=== PATIENT | female | born 1940 | race Caucasian/White ===

== ENCOUNTER 2018-03-15 15:55 | Inpatient (IN) ==
[2018-03-15] MEDS ORDERED: CLINDAMYCIN INJ 600 MG in PREMIX 1 EACH IV STA (16:38)
[2018-03-15 16:46] LABS: Basophils % 0.2 % (0.0-0.8); Eosinophils % 0.2 % (0.00-10.9); Hematocrit 41.4 VOL% (35.7-47.0); Hemoglobin 14.1 GM/DL (12.0-16.0); Immature Granulocytes % 0.6 %; Immature Granulocytes Absolute 0.12 #; Lymphocytes # 1.5 10*3/uL (1.4-4.0); Lymphocytes % 7.8 % (21.3-54.2); Mean Corpuscular HGB Conc 34.1 GM/DL (32-36); Mean Corpuscular Hemoglobin 30 PG (27-34); Mean Corpuscular Volume 86.8 FL (87-102); Mean Platelet Volume 10.8 FL (9.6-12.0); Monocytes # 0.9 10*3/uL (0.11-0.8); Monocytes % 4.7 % (1.7-12.7); Neutrophils # 16.8 10*3/uL (1.4-7.4); Neutrophils % 86.5 % (38.7-73.9); Platelet Count 241 T/CUMM (130-400); Red Blood Count 4.77 MC/CUMM (3.8-5.5); Red Cell Distribution Width 13.5 % (9.3-17.3); White Blood Count 19.3 T/CUMM (4-12)
[2018-03-15] MEDS ORDERED: SODIUM CHLORIDE 0.9% 1,000 ML IV STA (17:08)
[2018-03-15 17:10] LABS: Albumin 3.5 G/DL (3.4-5.0); Bilirubin,Total 1.2 MG/DL (0.2-1.0); Calcium 8.3 MG/DL (8.5-10.1); Osmolality,Calculated 276.2 MOS/KG (273-304); Potassium 3.8 MMOL/L (3.5-5.1); Total Protein 7.1 G/DL (6.4-8.3)
[2018-03-15 17:32] LABS: Lactic Acid 1.5 MMOL/L (0.4-2.0)
[2018-03-15] MEDS ORDERED: ACETAMINOPHEN 325 MG TABLET PO PRN (17:56)
[2018-03-15] MEDS ORDERED: ONDANSETRON 4 MG/2 ML VIAL IV PRN (17:56)
[2018-03-15] MEDS ORDERED: diphenhydrAMINE 50 MG/1 ML VIAL IV PRN (17:56)
[2018-03-15] MEDS ORDERED: CEFTAROLINE 300 MG in SODIUM CHLORIDE 0.9% 100 ML IV SCH (19:30)
[2018-03-15] MEDS ORDERED: diphenhydrAMINE 2% CREAM 28 GM TUBE TOP PRN (20:55)
[2018-03-15] MEDS: SODIUM CHLORIDE 0.9% 1,000 ML IV SCH (20:58)
[2018-03-15] MEDS ORDERED: SIMVASTATIN 40 MG TABLET PO SCH (21:00)
[2018-03-15] MEDS: diphenhydrAMINE CAP 50 MG CAPSULE PO PRN (21:11)
[2018-03-16] MEDS: diphenhydrAMINE CAP 50 MG CAPSULE PO PRN ×2 (05:52→21:26)
[2018-03-16] MEDS ORDERED: methylPREDNISolone SOD SUC 40 MG/1 ML VIAL IV ONE (06:00)
[2018-03-16 06:11] LABS: Basophils % 0.1 % (0.0-0.8); Eosinophils # 0.2 10*3/uL (0.0-0.87); Eosinophils % 1.4 % (0.00-10.9); Hematocrit 34.3 VOL% (35.7-47.0); Immature Granulocytes % 0.4 %; Immature Granulocytes Absolute 0.04 #; Lymphocytes # 1.5 10*3/uL (1.4-4.0); Lymphocytes % 13.9 % (21.3-54.2); Mean Corpuscular HGB Conc 33.8 GM/DL (32-36); Mean Corpuscular Hemoglobin 30 PG (27-34); Mean Corpuscular Volume 88.6 FL (87-102); Mean Platelet Volume 11.5 FL (9.6-12.0); Monocytes # 0.6 10*3/uL (0.11-0.8); Monocytes % 5.4 % (1.7-12.7); Neutrophils # 8.4 10*3/uL (1.4-7.4); Neutrophils % 78.8 % (38.7-73.9); Red Blood Count 3.87 MC/CUMM (3.8-5.5); Red Cell Distribution Width 13.6 % (9.3-17.3)
[2018-03-16 06:12] LABS: Calcium 7.8 MG/DL (8.5-10.1); Osmolality,Calculated 279.7 MOS/KG (273-304); Potassium 3.4 MMOL/L (3.5-5.1)
[2018-03-16 06:13] LABS: Hemoglobin 11.6 GM/DL (12.0-16.0); White Blood Count 10.6 T/CUMM (4-12)
[2018-03-16 06:14] LABS: Platelet Count 189 T/CUMM (130-400)
[2018-03-16] MEDS: SODIUM CHLORIDE 0.9% 1,000 ML IV SCH (06:41)
[2018-03-16] MEDS ORDERED: CLINDAMYCIN INJ 600 MG in PREMIX 1 EACH IV SCH (07:00)
[2018-03-16] MEDS ORDERED: POTASSIUM CHLORIDE RIDER 10 MEQ in PREMIX 1 EACH IV PRN (07:23)
[2018-03-16] MEDS: POTASSIUM CHLORIDE 8 MEQ CAPSULE PO SCH (08:04)
[2018-03-16] MEDS: CALCIUM (CARBONATE)/VITAMIN D 600 MG-400 UNIT TABLET PO SCH (08:04)
[2018-03-16] MEDS: POTASSIUM CHLORIDE 20 MEQ TABLET PO PRN (08:04)
[2018-03-16] MEDS: ASPIRIN EC 81 MG TABLET PO SCH (08:05)
[2018-03-16] MEDS: CETIRIZINE 10 MG TABLET PO SCH (08:36)
[2018-03-16] MEDS: FAMOTIDINE 20 MG TABLET PO SCH ×2 (08:36→21:26)
[2018-03-16] MEDS: FLUCONAZOLE INJ 200 MG in PREMIX 1 EACH IV SCH (08:36)
[2018-03-16] MEDS: CLOTRIMAZOLE/BETAMETHASONE CREAM 15 GM TUBE TOP SCH ×2 (08:36→21:26)
[2018-03-16] MEDS ORDERED: MELOXICAM 7.5 MG TABLET PO SCH (09:00)
[2018-03-16] MEDS ORDERED: PANTOPRAZOLE 40 MG TABLET PO SCH (09:00)
[2018-03-16] MEDS ORDERED: PNEUMOCOCCAL VACCINE (13 VALENT) 0.5 ML SYRINGE IM ONE (09:00)
[2018-03-16] MEDS ORDERED: LISINOPRIL/HCTZ 10-12.5 MG TABLET PO SCH (09:00)
[2018-03-16] MEDS ORDERED: ESTRADIOL 1 MG TABLET PO SCH (09:00)
[2018-03-17] MEDS: diphenhydrAMINE CAP 50 MG CAPSULE PO PRN (04:07)
[2018-03-17 05:19] LABS: Basophils % 0.1 % (0.0-0.8); Eosinophils % 0.2 % (0.00-10.9); Hematocrit 31.8 VOL% (35.7-47.0); Hemoglobin 10.4 GM/DL (12.0-16.0); Immature Granulocytes % 0.6 %; Immature Granulocytes Absolute 0.07 #; Lymphocytes # 1.2 10*3/uL (1.4-4.0); Lymphocytes % 9.5 % (21.3-54.2); Mean Corpuscular HGB Conc 32.7 GM/DL (32-36); Mean Corpuscular Hemoglobin 29 PG (27-34); Mean Corpuscular Volume 88.1 FL (87-102); Mean Platelet Volume 11.3 FL (9.6-12.0); Monocytes # 0.7 10*3/uL (0.11-0.8); Neutrophils # 10.2 10*3/uL (1.4-7.4); Neutrophils % 83.6 % (38.7-73.9); Platelet Count 203 T/CUMM (130-400); Red Blood Count 3.61 MC/CUMM (3.8-5.5); Red Cell Distribution Width 13.4 % (9.3-17.3); White Blood Count 12.2 T/CUMM (4-12)
[2018-03-17 05:34] LABS: Calcium 7.7 MG/DL (8.5-10.1); Osmolality,Calculated 278.7 MOS/KG (273-304); Potassium 3.7 MMOL/L (3.5-5.1)
[2018-03-17] MEDS: POTASSIUM CHLORIDE 8 MEQ CAPSULE PO SCH (08:11)
[2018-03-17] MEDS: FAMOTIDINE 20 MG TABLET PO SCH ×2 (08:11→22:01)
[2018-03-17] MEDS: ASPIRIN EC 81 MG TABLET PO SCH (08:11)
[2018-03-17] MEDS: POTASSIUM CHLORIDE 20 MEQ TABLET PO PRN (08:11)
[2018-03-17] MEDS: CALCIUM (CARBONATE)/VITAMIN D 600 MG-400 UNIT TABLET PO SCH (08:11)
[2018-03-17] MEDS: CETIRIZINE 10 MG TABLET PO SCH (08:11)
[2018-03-17] MEDS: CLOTRIMAZOLE/BETAMETHASONE CREAM 15 GM TUBE TOP SCH ×3 (08:12→22:02)
[2018-03-17] MEDS: FLUCONAZOLE INJ 200 MG in PREMIX 1 EACH IV SCH (08:28)
[2018-03-17] MEDS ORDERED: hydrOXYzine HCL 25 MG TABLET PO SCH (09:00)
[2018-03-17] MEDS: FLUCONAZOLE 200 MG TABLET PO SCH (09:01)
[2018-03-17] MEDS ORDERED: hydrOXYzine HCL 25 MG TABLET PO PRN (09:11)
[2018-03-17] MEDS ORDERED: ALUMINUM/MAGNES/SIMETH MAX STR 30 ML UDCUP PO PRN (15:18)
[2018-03-17] MEDS: PANTOPRAZOLE 40 MG TABLET PO SCH (15:46)
[2018-03-18 06:22] LABS: Basophils % 0.2 % (0.0-0.8); Eosinophils # 0.3 10*3/uL (0.0-0.87); Eosinophils % 2.8 % (0.00-10.9); Hematocrit 32.6 VOL% (35.7-47.0); Hemoglobin 10.7 GM/DL (12.0-16.0); Immature Granulocytes % 0.7 %; Immature Granulocytes Absolute 0.06 #; Lymphocytes # 2.2 10*3/uL (1.4-4.0); Lymphocytes % 24.4 % (21.3-54.2); Mean Corpuscular HGB Conc 32.8 GM/DL (32-36); Mean Corpuscular Hemoglobin 29 PG (27-34); Mean Corpuscular Volume 87.6 FL (87-102); Mean Platelet Volume 11.1 FL (9.6-12.0); Monocytes # 0.8 10*3/uL (0.11-0.8); Neutrophils # 5.5 10*3/uL (1.4-7.4); Neutrophils % 62.9 % (38.7-73.9); Platelet Count 227 T/CUMM (130-400); Red Blood Count 3.72 MC/CUMM (3.8-5.5); Red Cell Distribution Width 13.7 % (9.3-17.3); White Blood Count 8.8 T/CUMM (4-12)
[2018-03-18 06:40] LABS: Calcium 7.9 MG/DL (8.5-10.1); Osmolality,Calculated 282.1 MOS/KG (273-304); Potassium 3.7 MMOL/L (3.5-5.1)
[2018-03-18] MEDS: CETIRIZINE 10 MG TABLET PO SCH (08:09)
[2018-03-18] MEDS: CALCIUM (CARBONATE)/VITAMIN D 600 MG-400 UNIT TABLET PO SCH (08:09)
[2018-03-18] MEDS: CLOTRIMAZOLE/BETAMETHASONE CREAM 15 GM TUBE TOP SCH (08:09)
[2018-03-18] MEDS: FLUCONAZOLE 200 MG TABLET PO SCH (08:09)
[2018-03-18] MEDS: POTASSIUM CHLORIDE 8 MEQ CAPSULE PO SCH (08:09)
[2018-03-18] MEDS: FAMOTIDINE 20 MG TABLET PO SCH (08:09)
[2018-03-18] MEDS: ASPIRIN EC 81 MG TABLET PO SCH (08:09)
[2018-03-18] MEDS: PANTOPRAZOLE 40 MG TABLET PO SCH (08:09)
[2018-03-18 08:41] VITALS: BP 138/84
== END 2018-03-18 11:51 | disposition home or self-care (01) | DRG 607 ==
LOC: N.ED 15:55 → N.EDINP 17:54 → N.5E 18:27
PROVIDERS: ADMIT Internal Medicine; ATTEND Internal Medicine